=== PATIENT | female | born 1980 | race American Indian/Alaskan Native ===

== ENCOUNTER 2016-12-25 10:15 | Emergency (ER) | payer SELFPAY ==
[2016-12-25 10:29] VITALS: BP 127/90
[2016-12-25 11:01] LABS: Basophils % (Auto) 0.5 % (0.0-1.8); Eosinophils % (Auto) 5.3 % (0.0-4.3); Hematocrit 38.6 % (30.3-42.9); Hemoglobin 12.4 gm/dl (10.1-14.3); Mean Corpuscular HGB Conc 32 % (30-34); Mean Corpuscular Volume 80 fl (79-97); Platelet Count 289 K/mm3 (140-440); Red Blood Count 4.82 M/mm3 (3.65-5.03); Red Cell Distribution Width 19.1 % (13.2-15.2); White Blood Count 7.5 K/mm3 (4.5-11.0)
[2016-12-25 11:11] LABS: Alanine Aminotransferase 21 units/L (7-56); Albumin 3.9 g/dL (3.9-5); Albumin/Globulin Ratio 1.3 %; Alkaline Phosphatase 75 units/L (35-129); Anion Gap 18 mmol/L; Blood Urea Nitrogen 6 mg/dL (7-17); Calcium 9.1 mg/dL (8.4-10.2); Carbon Dioxide 21 mmol/L (22-30); Chloride 103.6 mmol/L (98-107); Glucose 99 mg/dL (65-100); Lipase 31 units/L (13-60); Mean Corpuscular Hemoglobin 26 pg (28-32); Potassium 4.1 mmol/L (3.6-5.0); Sodium 138 mmol/L (137-145); Total Protein 6.9 g/dL (6.3-8.2)
[2016-12-25 11:30] LABS: Bacteria,Urine 1+ /HPF (Negative); Bilirubin,Urine NEG (Negative); Blood,Urine NEG (Negative); Ketones,Urine NEG (Negative); Leukocyte Esterase,Urine NEG (Negative); Nitrite,Urine NEG (Negative); Protein,Urine <15 mg/dL mg/dL (Negative); Urobilinogen,Urine < 2.0 mg/dL (<2.0)
[2016-12-25 11:31] LABS: WBC,Urine < 1.0 /HPF (0.0-6.0)
--- NOTE | 2016-12-28 05:29 | ED Elopement Review ---
ED Pt Elopement review - Results review Lab results: Laboratory Tests 12/25/16 12/25/16 12/25/16 10:40 10:40 10:40 WBC 7.5 RBC 4.82 Hgb 12.4 Hct 38.6 MCV 80 MCH 26 L MCHC 32 RDW 19.1 H Plt Count 289 Lymph % (Auto) 35.9 H Iron % (Auto) 6.5 Eos % (Auto) 5.3 H Baso % (Auto) 0.5 Lymph # 2.7 Iron # 0.5 Eos # 0.4 Baso # 0.0 Seg Neutrophils % 51.8 Seg Neutrophils # 3.9 Sodium 138 Potassium 4.1 Chloride 103.6 Carbon Dioxide 21 L Anion Gap 18 BUN 6 L Creatinine 0.6 L Estimated GFR > 60 BUN/Creatinine Ratio 10.00 Glucose 99 Calcium 9.1 Total Bilirubin 0.40 AST 22 ALT 21 Alkaline Phosphatase 75 Troponin T < 0.010 Total Protein 6.9 Albumin 3.9 Albumin/Globulin Ratio 1.3 Lipase 31 Urine Color Urine Turbidity Urine pH Ur Specific [place] Urine Protein Urine Glucose (UA) Urine Ketones Urine Blood Urine Nitrite Urine Bilirubin Urine Urobilinogen Ur Leukocyte Esterase Urine WBC (Auto) Urine RBC (Auto) U Epithel Cells (Auto) Urine Bacteria (Auto) Urine HCG, Qual 12/25/16 12/25/16 11:14 13:24 WBC RBC Hgb Hct MCV MCH MCHC RDW Plt Count Lymph % (Auto) Iron % (Auto) Eos % (Auto) Baso % (Auto) Lymph # Iron # Eos # Baso # Seg Neutrophils % Seg Neutrophils # Sodium Potassium Chloride Carbon Dioxide Anion Gap BUN Creatinine Estimated GFR BUN/Creatinine Ratio Glucose Calcium Total Bilirubin AST ALT Alkaline Phosphatase Troponin T < 0.010 Total Protein Albumin Albumin/Globulin Ratio Lipase Urine Color Straw Urine Turbidity Clear Urine pH 6.0 Ur Specific [place] 1.004 Urine Protein <15 mg/dl Urine Glucose (UA) Neg Urine Ketones Neg Urine Blood Neg Urine Nitrite Neg Urine Bilirubin Neg Urine Urobilinogen < 2.0 Ur Leukocyte Esterase Neg Urine WBC (Auto) < 1.0 Urine RBC (Auto) 3.0 U Epithel Cells (Auto) 1.0 Urine Bacteria (Auto) 1+ Urine HCG, Qual Negative - Call Back decision Pt Call Back Decision: No action required
== END 2016-12-25 21:48 | disposition left against medical advice (07) ==
LOC: ED 10:15
DX: R07.9 Chest pain, unspecified (principal); Z53.21 Procedure and treatment not carried out due to patient leaving prior to being seen by health care provider
CPT/HCPCS: 36415; 80053; 81001; 81025; 83690; 84484; 85025; 93005; 93010